=== PATIENT | male | born 1935 | race Caucasian/White ===

== ENCOUNTER 2020-06-10 07:20 | Outpatient (CLI) | payer OTHER ==
[~2020-06-10 07:20] MED LIST: IBUPROFEN800 MG PO; ORPH100T PO
[2020-06-13] MEDS ORDERED: SYNTHROID75 MCG PO (13:02)
[2020-06-13] MEDS ORDERED: TAMS0.4C PO (13:03)
[2020-06-13] MEDS ORDERED: GLUCOSAMI PO (13:04)
== END 2020-06-10 07:41 | disposition home or self-care (01) ==
LOC: LAB 07:20
PROVIDERS: ATTEND Anesthesiology Pain Medicine
DX: M51.36 Other intervertebral disc degeneration, lumbar region (principal); E55.9 Vitamin D deficiency, unspecified; R10.31 Right lower quadrant pain; M25.562 Pain in left knee; Z03.818 Encounter for observation for suspected exposure to other biological agents ruled out; M48.061 Spinal stenosis, lumbar region without neurogenic claudication; I10 Essential (primary) hypertension

== ENCOUNTER 2020-06-17 05:45 | Day surgery (SDC) | payer OTHER ==
[~2020-06-17 05:45] MED LIST changes: +GLUCOSAMI PO; +SYNTHROID75 MCG PO; +TAMS0.4C PO
== END 2020-06-17 10:05 | disposition home or self-care (01) ==
LOC: CIR.AMB 05:45
PROVIDERS: ATTEND Anesthesiology Pain Medicine
DX: M51.36 Other intervertebral disc degeneration, lumbar region (principal); M48.061 Spinal stenosis, lumbar region without neurogenic claudication; Z20.828 Contact with and (suspected) exposure to other viral communicable diseases